=== PATIENT | male | born 1990 | race Caucasian/White ===

== ENCOUNTER 2023-08-21 22:54 | Emergency (ER) | payer SELFPAY ==
--- NOTE | 2023-08-21 | ECG_ITS ---
Test Reason : OVERDOSE Blood Pressure : / mmHG Vent. Rate : 079 BPM Atrial Rate : 079 BPM P-R Int : 160 ms QRS Dur : 098 ms QT Int : 380 ms P-R-T Axes : 062 031 032 degrees QTc Int : 435 ms Normal sinus rhythm Normal ECG No previous ECGs available Referred By: Kati Sears Electronically Signed By:JACKIE ABARCA
[2023-08-21 23:06] VITALS: BP 142/98; PULSE 112; O2SAT 95
[2023-08-21 23:11] VITALS: PULSE 80; RESP 12; O2SAT 95; BMI 21.5
--- NOTE | 2023-08-21 23:21 | ED.OVERDOSE ---
HPI - Overdose General Chief Complaint: Overdose Stated Complaint: OD on 20-30 pills of lorazepam, smells of alc. Time Seen by Provider: 08/21/23 23:11 Source: EMS Mode of arrival: EMS Limitations: altered mental status History of Present Illness HPI Narrative: Patient comes to the emergency room via EMS. Patient coming from home. Patient was found unresponsive by his family 15 minutes prior to EMS arrival. According to a family member , reported to EMS that the patient was found beside a bottle of Ativan. The Ativan belongs to a family member of the house, who believes that there are 20-30 tablets of Ativan missing. Also, patient has a strong odor of alcohol. According to the family, the patient has no psychiatric history, there was no indication that the patient would attempt to overdose. On arrival patient's vital stable, patient only responsive to sternal rub and falls back asleep. Related Data Allergies Allergy/AdvReac Type Severity Reaction Status Date / Time No Known Allergies Allergy Verified 08/21/23 23:20 Review of Systems Review of Systems: Yes Unobtainable due to mental condition PMFSH Social History Social History Advance Directives: No Advance Directives Information Provided: Yes Physical Exam Vital Signs: Vital Signs: Last Vital Signs Pulse 80 08/21/23 23:11 Resp 12 08/21/23 23:11 Pulse Ox 95 08/21/23 23:11 O2 Del Method Room Air 08/21/23 23:11 BMI result Body Mass Index 21.5 Const: Other: Appearance: Somnolent, arousable to sternal rub, wakes up and falls back asleep Eyes: Pupils have sluggish response to light. However, patient has colored contact lenses ENT: Pharynx normal. Neck: Normal inspection. Neck supple. No lymph nodes noted. No crepitus CVS: Normal heart rate and rhythm. Pulses normal. Normal S1 and S2 Respiratory: No respiratory distress. Breath sounds normal. No Wheezing. No rales Abdomen: Soft and nontender. No rigidity. No distention. Skin: Skin warm and dry. There are several superficial skin scratching in bilateral upper thighs Extremities: No lower extremity edema. No Lacerations. No Rash Neuro: Somnolent, arousable to sternal rub Psych: Too somnolent to evaluate Course Course Course Narrative: Patient's labs and EKG pending -vitals are stable -patient on a Section 12, patient on a one-to-one observation -patient's nurse on the phone with poison Control Medical Decision Making Medical Decision Making [facility] Narrative: -my interpretation of the EKG: Normal sinus rhythm, heart rate 79, no ST segment depression or elevation, no T-wave inversion, QTC 435 -my interpretation of labs, hematology, normal chemistry, ETOH positive, negative for aspirin or acetaminophen. Urine toxicology pending. -patient's family is at bedside. The mother reports that she takes Ativan and she was missing between 20-30 pills. However, after the patient was brought to the emergency room, she found some of the pills in patient's bed. It is unclear how many he took. -according to the family, patient has no history of anxiety or depression or suicidal attempts, no psychiatric history. I discussed with them that on physical exam he has superficial cuts in both upper thighs, likely indicating anxiety/depression. Discussed with them that patient is on a Section 12, waiting to be seen by Psychiatry and disposition pending. Both patient's mom and sister agree with the plan. Patient is still too somnolent to participate in history/decision making. Differential Diagnosis Differential Diagnoses: The differential diagnosis associated with the presentation includes (Alcohol intoxication, benzodiazepine overdose, anxiety, depression, suicide attempt) Admission/Observation Consideration of admission/observation: Escalation of care including admission/observation considered (Patient is on a Section 12, disposition pending by the care team) Lab Data [facility] Lab Attestation statement: I reviewed the patient's lab results. 08/21/23 23:37 08/21/23 23:37 Labs: Lab Results 08/21/23 Range/Units 23:37 WBC 6.8 (4.8-10.8) X10*3/uL RBC 4.87 (4.60-5.80) X10*6/uL Hgb 15.3 (14.0-18.0) g/dl Hct 43.1 (42.0-52.0) % MCV 88.5 (80.0-98.0) fL MCH 31.4 (27.0-33.0) pg MCHC 35.5 (31.0-36.0) g/dl RDW 11.2 (11.0-16.0) % Plt Count 305 (160-400) X10*3/uL MPV 8.4 L (9.4-12.4) fL Immature Gran % (Auto) 0.3 (0.0-0.4) % Neut % (Auto) 56.3 (45-73) % Lymph % (Auto) 32.4 (20-40) % Woodward % (Auto) 6.4 (2-11) % Eos % (Auto) 4.0 (0-4) % Baso % (Auto) 0.6 (0-2) % Lymph # (Auto) 2.2 (1.2-4.9) X10*3/uL Woodward # (Auto) 0.4 (0.1-1.2) X10*3/uL Eos # (Auto) 0.3 (0.0-0.4) X10*3/uL Baso # (Auto) 0.0 (0.0-0.2) X10*3/uL Abs Immat Gran (auto) 0.02 (0.00-0.03) X10*3/uL Absolute Neuts (auto) 3.8 (2.0-8.3) x10*3/uL Absolute Nucleated RBC 0.000 (0.0-0.012) X10*3/uL Nucleated RBC % (auto) 0.0 (0.0-0.2) /100WBC PT 11.4 (11.1-13.3) SEC INR 0.9 (0.9-1.1) Sodium 143 (135-145) mmol/L Potassium 3.5 (3.3-5.1) mmol/L Chloride 106 (96-108) mmol/L Carbon Dioxide 26 (22-29) mmol/L Anion Gap 15 (12-20) BUN 9 (9-16) mg/dL Creatinine 0.73 (0.5-1.4) mg/dL Estim Creat Clear Calc 131.5 Estimated GFR > 60 Random Glucose 77 (60-115) mg/dL Calcium 8.9 (8.4-10.2) mg/dL Magnesium 2.3 (1.6-2.6) mg/dL Total Bilirubin 1.0 (0.0-1.0) mg/dL Direct Bilirubin 0.3 (0.0-0.5) mg/dL AST 17 (5-37) U/L ALT 12 (0-40) U/L Alkaline Phosphatase 80 (39-117) U/L Ammonia 29 (13-55) umol/L Troponin I High Sens < 2.7 (<3.5-35.0) ng/L Total Protein 7.7 (6.5-8.0) g/dL Albumin 4.5 (3.5-5.0) g/dL Salicylates < 5.0 L (15-30) mg/dL Acetaminophen < 3 (<30) mcg/mL Ethyl Alcohol 213 mg/dL Independent Interpretation I performed an independent interpretation of an: EKG Independent Historian Clinical information obtained from an independent historian. History obtained from or confirmed by: Parent (Mother), EMS and Other (Sister) Critical Care Time Critical Care Time Critical Care Time: Yes Total Critical Care Time: 60 Attestation: I have personally provided critical care time. Time includes review of lab data, radiology results, discussion with consultants, and monitoring for potential decompensation. Intervention performed as documented. Discharge Plan Discharge Clinical Impression: Drug overdose, Alcohol abuse Patient Disposition: Still a Patient
--- NOTE | 2023-08-21 23:26 | PC.NURSE ---
Pt unresponsive only responds to painful stimuli. Provider in with pt Vitals stable. This RN called poison control and spoke with Jonas. Per Jonas with ativan all we can do is supportive care. Plan of care ongoing.
[2023-08-21 23:45] LABS: Basophils Percent Auto 0.6 % (0-2); Eosinophils Absolute Auto 0.3 X10*3/uL (0.0-0.4); Hematocrit 43.1 % (42.0-52.0); Hemoglobin 15.3 g/dl (14.0-18.0); Imm Gran Abs Auto 0.02 X10*3/uL (0.00-0.03); Imm Gran Pct Auto 0.3 % (0.0-0.4); Lymphocytes Absolute Auto 2.2 X10*3/uL (1.2-4.9); Lymphocytes Percent Auto 32.4 % (20-40); MANUAL DIFF FLAG NO; Mean Corpuscular HGB Conc 35.5 g/dl (31.0-36.0); Mean Corpuscular Hemoglobin 31.4 pg (27.0-33.0); Mean Corpuscular Volume 88.5 fL (80.0-98.0); Mean Platelet Volume 8.4 fL (9.4-12.4); Monocytes Absolute Auto 0.4 X10*3/uL (0.1-1.2); Monocytes Percent Auto 6.4 % (2-11); Neutrophils Absolute Auto 3.8 x10*3/uL (2.0-8.3); Neutrophils Percent Auto 56.3 % (45-73); Platelet Count 305 X10*3/uL (160-400); Red Blood Count 4.87 X10*6/uL (4.60-5.80); Red Cell Distribution Width 11.2 % (11.0-16.0); White Blood Count 6.8 X10*3/uL (4.8-10.8)
[2023-08-21 23:50] LABS: INTERNATIONAL NORM RATIO 0.9 (0.9-1.1); Prothrombin Time 11.4 SEC (11.1-13.3)
[2023-08-21 23:52] LABS: Ammonia 29 umol/L (13-55)
[2023-08-21 23:59] LABS: Alanine Aminotransferase 12 U/L (0-40); Albumin Level 4.5 g/dL (3.5-5.0); Alkaline Phosphatase 80 U/L (39-117); Anion Gap 15 (12-20); Aspartate Amino Transferase 17 U/L (5-37); Bilirubin Direct 0.3 mg/dL (0.0-0.5); Blood Urea Nitrogen 9 mg/dL (9-16); Calcium 8.9 mg/dL (8.4-10.2); Carbon Dioxide 26 mmol/L (22-29); Chloride 106 mmol/L (96-108); Creatinine Clr Calc Pharmacy 131.5; Estimated Glomerular Filt Rate > 60; Ethanol 213 mg/dL; Glucose Random 77 mg/dL (60-115); Magnesium 2.3 mg/dL (1.6-2.6); Potassium 3.5 mmol/L (3.3-5.1); Sodium 143 mmol/L (135-145); Total Protein 7.7 g/dL (6.5-8.0)
[2023-08-22 00:05] LABS: Acetaminophen LAB < 3 mcg/mL (<30); Salicylate < 5.0 mg/dL (15-30)
[2023-08-22 00:08] LABS: Troponin-I High Sensitivity < 2.7 ng/L (<3.5-35.0)
--- NOTE | 2023-08-22 01:32 | PC.NURSE ---
This RN spoke with family at bedside regarding pts status. Plan of care ongoing.
[2023-08-22 02:00] VITALS: BP 108/75; PULSE 78; RESP 15; O2SAT 100
[2023-08-22 05:23] VITALS: BP 111/69; PULSE 100; RESP 16; O2SAT 99
[2023-08-22 05:30] LABS: Amphetamine Screen Urine Not Detected (Not Detect); Barbiturates, Urine Not Detected (Not Detect); Benzodiazepines Screen Urine Not Detected (Not Detect); Cannabinoid Screen Urine Not Detected (Not Detect); Cocaine Screen Urine Not Detected (Not Detect); Fentanyl, urine Not Detected (Not Detect); Opiate Screen Urine Not Detected (Not Detect); Phencyclidine Screen Urine Not Detected (Not Detect)
--- NOTE | 2023-08-22 05:46 | PC.NURSE ---
Pt awake. Pt denies taking any pills (ativan) Pt reports he only drank alcohol. Provider aware. Plan of care ongoing.
[2023-08-22 08:31] VITALS: BP 113/78; PULSE 91; RESP 16; TEMP 36.6; O2SAT 96
== END 2023-08-22 08:56 | disposition home or self-care (01) ==
PROVIDERS: Emergency Provider Emergency Medicine
DX: T42.4X2A Poisoning by benzodiazepines, intentional self-harm, initial encounter (principal); R45.851 Suicidal ideations; Y92.9 Unspecified place or not applicable; F33.1 Major depressive disorder, recurrent, moderate; F41.1 Generalized anxiety disorder; F43.0 Acute stress reaction; F10.129 Alcohol abuse with intoxication, unspecified; Z79.899 Other long term (current) drug therapy; Y90.7 Blood alcohol level of 200-239 mg/100 ml
CPT/HCPCS: 36415; 51701; 80048; 80076; 80143; 80179; 80307; 82140; 83735; 84484; 85025; 85610; 93005; 99285; S9485

== ENCOUNTER → 2023-08-21 23:24 | Outpatient (BNV) | payer SELFPAY | PROVIDERS: Emergency Provider Emergency Medicine; Visit Provider Internal Medicine | DX: T50.901A Poisoning by unspecified drugs, medicaments and biological substances, accidental (unintentional), initial encounter (principal) | CPT/HCPCS: 93010 ==

== ENCOUNTER 2023-09-15 11:52 | Outpatient (REF) | payer OTHER, SELFPAY ==
[2023-09-15 12:31] LABS: MANUAL DIFF FLAG NO
[2023-09-15 14:01] LABS: Basophils Percent Auto 0.6 % (0-2); Eosinophils Absolute Auto 0.1 X10*3/uL (0.0-0.4); Eosinophils Percent Auto 1.9 % (0-4); Hematocrit 48.3 % (42.0-52.0); Hemoglobin 16.3 g/dl (14.0-18.0); Imm Gran Abs Auto 0.01 X10*3/uL (0.00-0.03); Imm Gran Pct Auto 0.2 % (0.0-0.4); Lymphocytes Absolute Auto 1.3 X10*3/uL (1.2-4.9); Lymphocytes Percent Auto 20.3 % (20-40); Mean Corpuscular HGB Conc 33.7 g/dl (31.0-36.0); Mean Corpuscular Volume 91.8 fL (80.0-98.0); Mean Platelet Volume 9.6 fL (9.4-12.4); Monocytes Absolute Auto 0.5 X10*3/uL (0.1-1.2); Monocytes Percent Auto 7.4 % (2-11); Neutrophils Absolute Auto 4.5 x10*3/uL (2.0-8.3); Neutrophils Percent Auto 69.6 % (45-73); Platelet Count 338 X10*3/uL (160-400); Red Blood Count 5.26 X10*6/uL (4.60-5.80); Red Cell Distribution Width 11.3 % (11.0-16.0); White Blood Count 6.5 X10*3/uL (4.8-10.8)
[2023-09-15 14:45] LABS: Alanine Aminotransferase 15 U/L (0-40); Albumin Level 4.6 g/dL (3.5-5.0); Alkaline Phosphatase 81 U/L (39-117); Anion Gap 12 (12-20); Aspartate Amino Transferase 19 U/L (5-37); Bilirubin Direct 0.5 mg/dL (0.0-0.5); Bilirubin Total 2.1 mg/dL (0.0-1.0); Blood Urea Nitrogen 10 mg/dL (9-16); Calcium 9.9 mg/dL (8.4-10.2); Carbon Dioxide 29 mmol/L (22-29); Chloride 100 mmol/L (96-108); Estimated Glomerular Filt Rate > 60; Glucose Random 82 mg/dL (60-115); Potassium 4.3 mmol/L (3.3-5.1); Sodium 137 mmol/L (135-145)
[2023-09-16 09:03] LABS: HBS Num1 25.08 mIU/mL (0-7.99); HBc Num1 0.04 S/CO (0.00-0.79); HBsAGNum1 0.29 S/CO (0.00-0.99); Hepatitis B Core Antibody Nonreactive (Nonreactive); Hepatitis B Surface Antigen Negative (Negative); ~HepC Num1 0.19 S/CO (0.00-0.79); ~Hepatitis B Surface Antibody REACTIVE (Nonreactive); ~Hepatitis C Antibody Nonreactive (Nonreactive)
[2023-09-18 08:53] LABS: TS Negative Control Passed; TS Panel A 0; TS Panel B 0; TS Positive Control Passed; TSpotTB Negative (Negative)
== END 2023-09-15 11:53 | disposition home or self-care (01) ==
LOC: HO.LAB 11:52
PROVIDERS: Visit Provider Physician Assistant Medical
DX: Z11.1 Encounter for screening for respiratory tuberculosis (principal); L40.0 Psoriasis vulgaris; L60.3 Nail dystrophy; L98.8 Other specified disorders of the skin and subcutaneous tissue; Z79.899 Other long term (current) drug therapy
CPT/HCPCS: 36415; 80048; 80076; 85025; 86481; 86704; 86706; 86803; 87340

== ENCOUNTER 2024-12-07 10:48 | Outpatient (REF) | payer OTHER, SELFPAY ==
--- NOTE | ~2024-12-07 | XR_ITS ---
CLINICAL HISTORY: CERVICAL AND THORACIC PAIN PAIN 3 views thoracic spine Comparison: None Findings: Normal vertebral body alignment. No acute fractures or dislocation. No significant degenerative change. IMPRESSION: No acute findings. This document has been electronically signed by: Cristopher Pimentel MD on 12/09/2024 08:33:58
--- NOTE | ~2024-12-07 | XR_ITS ---
CLINICAL HISTORY: PAIN --- Additional Notes or Special Instructions: WO 6 views cervical spine Comparison: None Findings: Normal vertebral body alignment. No acute fractures or dislocation. There are degenerative disc changes at C5-C6 and C6-C7. Prevertebral soft tissues within normal limits. Neural foramina are patent. IMPRESSION: No acute findings. This document has been electronically signed by: Cristopher Pimentel MD on 12/09/2024 08:33:42
[2024-12-07 11:01] LABS: MANUAL DIFF FLAG NO
[2024-12-07 11:38] LABS: Basophils Percent Auto 0.7 % (0-2); Eosinophils Absolute Auto 0.1 X10*3/uL (0.0-0.4); Eosinophils Percent Auto 1.2 % (0-4); Hematocrit 43.2 % (42.0-52.0); Hemoglobin 15.2 g/dl (14.0-18.0); Imm Gran Abs Auto 0.02 X10*3/uL (0.00-0.03); Imm Gran Pct Auto 0.3 % (0.0-0.4); Lymphocytes Absolute Auto 1.3 X10*3/uL (1.2-4.9); Lymphocytes Percent Auto 22.3 % (20-40); Mean Corpuscular HGB Conc 35.2 g/dl (31.0-36.0); Mean Corpuscular Hemoglobin 32.5 pg (27.0-33.0); Mean Corpuscular Volume 92.5 fL (80.0-98.0); Mean Platelet Volume 9.1 fL (9.4-12.4); Monocytes Absolute Auto 0.5 X10*3/uL (0.1-1.2); Monocytes Percent Auto 8.2 % (2-11); Neutrophils Percent Auto 67.3 % (45-73); Platelet Count 322 X10*3/uL (160-400); Red Blood Count 4.67 X10*6/uL (4.60-5.80); Red Cell Distribution Width 11.7 % (11.0-16.0)
[2024-12-07 12:38] LABS: Alanine Aminotransferase 42 U/L (0-40); Albumin Level 4.5 g/dL (3.5-5.0); Alkaline Phosphatase 57 U/L (39-117); Anion Gap 13 (12-20); Aspartate Amino Transferase 35 U/L (5-37); Bilirubin Total 1.6 mg/dL (0.0-1.0); Blood Urea Nitrogen 8 mg/dL (9-16); Calcium 9.6 mg/dL (8.4-10.2); Carbon Dioxide 27 mmol/L (22-29); Chloride 104 mmol/L (96-108); Cholesterol 213 mg/dL (<200); Estimated Glomerular Filt Rate > 60; Glucose Fasting 91 mg/dL (60-99); HDL Cholesterol 83 mg/dL (>40); LDL Cholesterol Calculated 117 mg/dL (<100); Potassium 4.1 mmol/L (3.3-5.1); Sodium 140 mmol/L (135-145); Total Protein 7.2 g/dL (6.5-8.0); Triglycerides 69 mg/dL (<150)
== END 2024-12-07 10:49 | disposition home or self-care (01) ==
LOC: HO.LAB 10:48
PROVIDERS: PCP Internal Medicine; Visit Provider Internal Medicine
DX: Z00.00 Encounter for general adult medical examination without abnormal findings (principal); E78.5 Hyperlipidemia, unspecified; M54.2 Cervicalgia; M54.6 Pain in thoracic spine
CPT/HCPCS: 36415; 72050; 72070; 80053; 80061; 85025

== ENCOUNTER → 2024-12-07 11:20 | Outpatient (BNV) | payer OTHER, SELFPAY | PROVIDERS: PCP Internal Medicine; Visit Provider Specialist | DX: M54.2 Cervicalgia (principal); M54.6 Pain in thoracic spine | CPT/HCPCS: 72050; 72070 ==

== ENCOUNTER 2025-02-22 08:48 | Outpatient (AMB) | payer OTHER, SELFPAY ==
--- NOTE | 2025-02-22 09:05 | A.OFFPC_ITS ---
Vital Signs 02/22/25 09:20 Height 5 ft 5.75 in Weight 143 lb BMI 23.3 BP 132/59 L Respiration 14 Pulse 70 Pulse Source Pulse Oximeter Temp 98.1 F Temp Source Temporal Artery Scan Pulse Oximetry (%) 99 Oxygen Delivery Method Room Air Intake Visit Reasons: Establish Care - see comments Wrap Yarn Sorter Required: No Accompanied by: Self / Same As Patient Allergies No Known Allergies Allergy (Verified 02/22/25 09:43) Medication List - Last Reconciled 02/22/25 by Leann Dudley PA-C zyajovsijx-krvjggnihggys-mcez 50-325-40 mg 1 tab PO DAILY PRN methylphenidate HCl 10 mg PO DAILY risankizumab-rzaa (Skyrizi) 150 mg subcut Q12W Tobacco use date assessed: 02/22/25 Dental Screening Dental Screen Date: 02/22/25 Did you have a dental visit in the last 12 months?: No Did you have a dental problem in the last 6 months where you did not have access to dental care?: No HPI Establish Care - see comments HPI Details The patient is a 34-year-old male presenting for a new primary care provider and management of ADHD. The patient has been on medication for ADHD, which was started two months ago as a trial run, and he is considering a dosage increase as he feels a higher dose may be more effective. He reports no adverse side effects from the current medication. The patient has a history of elevated liver enzymes, which have been monitored s sanjuana August 2023. The liver enzyme levels have shown a decreasing trend, and the patient denies any symptoms such as abdominal pain or jaundice. The patient has hypercholesterolemia, with a total cholesterol level of 213 mg/dL and LDL of 117 mg/dL. His HDL is 83 mg/dL, and triglycerides are within normal limits. The patient has a low blood pressure reading of 132/59 mmHg, with the diastolic value being slightly low. Preventative care measures discussed include blood work for TSH, PSA, vitamin D, vitamin B12, folate, and hemoglobin A1c, which have not been performed recently. Social History - Alcohol use: Denies significant alcoho l consumption [facility] Medical History (Updated 02/22/25 @ 10:20 by Leann Dudley PA-C) Elevated liver enzymes Preventative health care Hyperlipidemia Pure hypercholesterolemia, unspecified Migraine headache Psoriasis ADHD Establishing care with new doctor, encounter for Family History Mother BP (high blood pressure) Diabetes Arthritis Father BP (high blood pressure) Diabetes Social History Housing: Apartment Alcohol intake: current Alcohol intake frequency: holidays/special occasions only Patient Tobacco Use Status: Current someday Tobacco user service: No Current occupational status: employed Cognitive needs: No Hearing needs: No Vision needs: Yes (rx contacts/glasses) Questionnaire PHQ-9 Over the last 2 weeks, how often have you been bothered by any of the following problems? 1. Little interest or pleasure in doing things: not at all 2. Feeling down, depressed, or hopeless: not at all 3. Trouble falling or staying asleep, or sleeping too much: not at all 4. Feeling tired or having little energy: not at all 5. Poor appetite or overeating: not at all 6. Feeling bad about yourself - or that you are a failure or have let yourself o r your family down: not at all 7. Trouble concentrating on things, such as reading the newspaper or watching television: not at all 8. Moving or speaking so slowly that other people could have noticed. Or the opposite - being so fidgety or restless that you have been moving around a lot more than usual: not at all 9. Thoughts that you would be better off or of hurting yourself in some way: not at all Total score: 0 Depression Screening Interpretation: Negative Depression Screening Done: Yes 76508 - PHQ-9 Billing: Yes Source: Developed by Drs. Nas Eduardo, Rekha Orlando, Man grewal nd colleagues, with an educational drew from [employer]. Thrive Questionnaire Date Thrive assessed: 02/22/25 I am a: Patient What is your living situation today?: I have a steady place to live Within the past 12 months, did the food you bought not last and you didn't have the money to get more?: Never true Within the past 12 months, did you worry whether your food would run out before you got money to buy more?: Never true Do you have trouble paying for medicines?: No Do you have trouble getting transportation to medical appointments?: No Do you have trouble paying your heating and electricity bill?: No Do you have trouble taking care of your child, family member or friend?: No Do you have trouble with day-to-day activities such as bathing, preparing meals, shopping, managing finances, etc.?: No Are you currently unemployed and looking for a job?: No Are you interested in more education?: No Please select the resources that you would like help with: None THRIVE Score: 0 AUDIT C Alcohol Use Questionnaire (AUDIT-C) 1. How often do you have a drink containing alcohol?: Monthly or less 2. How many drinks containing alcohol do you have on a typical day when you are drinking?: 1 or 2 3. How often do you have six or more drinks on one occasion?: Never Total Score: 1 Score Reviewed/Action Taken: No BEN-7 AMB Questionnaire BEN-7 Date BEN - 7 assessed: 02/22/25 Feeling nervous, anxious, or on edge: 0 = Not at all Not being able to stop or control worryin = Not at all Worrying too much about different things: 0 = Not at all Trouble relaxin = Not at all Being so restless that it is hard to sit still: 0 = Not at all Becoming easily annoyed or irritable: 0 = Not at all Feeling afraid as if something awful might happen: 0 = Not at all Total BEN-7 score (0-4 normal; 5-9 mild; 10-14 moderate; 15-21 severe): 0 Source: Developed by Drs. Nas Eduardo, Rekha Orlando, Man Leyva and colleagues, with an educational drew from [employer]. BEN-7 Assessment Billing BEN-7 Assessment Tool: BEN-7 Assessment 92647 Review of Systems Const Details: - Neurological: Denies adverse side effects from ADHD medication - Gastrointestinal: Denies abdominal pain, jaundice, nausea, or vomiting - Cardiovascular: Denies chest pain, shortness of breath, or palpitations Physical exam (Primary Care) Vital Signs: Last Vital Signs Temp 98.1 F 02/22/25 09:20 Pulse 70 02/22/25 09:20 Resp 14 02/22/25 09:20 BP 132/59 L 02/22/25 09:20 Pulse Ox 99 02/22/25 09:20 Oxygen Delivery Method Room Air 02/22/25 09:20 Care Plan Goal for BP management: <140/90 at Goal BMI result Body Mass Index 23.3 normal bmi Tobacco/Smoking Status: Tobacco use Status Tobacco use date assessed 02/22/25 02/22/25 09:09 Patient Tobacco Use Status Current someday Tobacco 02/22/25 09:25 PHQ-9: PHQ-9 Score PHQ-9: Total score 0 02/22/25 09:25 Depression Screening Interpretation: Negative Thrive Assessment: Date of Thrive Assessment Date Thrive assessed 02/22/25 02/22/25 09:09 Const Other: Appearance: Alert. Oriented X3. No acute distress. Head: Normal external exam. Normocephalic. Atraumatic. Eyes: Pupils are equal, round, and reactive to light. Extraocular movements intact. Conjunctiva and sclera normal. Eyelids normal. Ears: External auditory canal normal. Tympanic membranes normal. Throat: Pharynx normal. Uvula midline. Moist mucous membranes. Neck: Normal inspection. Neck supple. Full range of motion. Cardiovascular: Normal heart rate and rhythm. Heart sound normal. No murmurs noted. Pulses normal throughout. Blood pressure was 132/59, with the second number a little bit low. Respiratory: No respiratory distress. Painless inspiration. Breath sounds normal. No wheezes/rales/rhonchi noted. Chest nontender. No accessory muscle usage noted or decreased air movement noted. Abdomen: Soft and nontender. Back: Full range of motion noted. Skin: Skin warm and dry. Normal skin color. Normal skin turgor. No rashes/l esions/lacerations noted. Extremities: No lower extremity edema. Extremities exhibit normal range of motion. Extremities nontender. Neuro: Oriented X 3. No motor deficit. No sensory deficit. Reflexes normal. Results Reviewed Results Reviewed: - Labs: CBC normal, no anemia, normal platelets, normal kidney function, elevated liver enzymes since August 2023, cholesterol 213 mg/dL, LDL 117 mg/dL, HDL 83 mg/dL, triglycerides normal Coding Level of Care Code New Pt Level 4 (40357) Complex EM visit Add On G2211 Diagnoses Establishing care with new doctor, encounter for Z76.89 ADHD F90.9 Psoriasis L40.9 Migraine headache G43.909 Pure hypercholesterolemia, unspecified E78.00 Hyperlipidemia E78.5 Preventative health care Z00.00 Elevated liver enzymes R74.8 Additional Codes PHQ-9 - 24804 - PHQ-9 Billing: Yes ([id number]) BEN-7 Assessment Billing - BEN-7 Assessment Tool: BEN-7 Assessment 73390 ([id number]) Assessment & Plan Assessment & Plan (1) Establishing care with new doctor, encounter for: Code(s): Z76.89 - Persons encountering health services in other specified circumstances Category: Medical (2) ADHD: Comment: On Methylphenidate 10 mg Code(s): F90.9 - Attention-deficit hyperactivity disorder, unspecified type Category: Medical Plan: The patient is currently on medication for ADHD, which was initiated two months ago as a trial. He is considering a dosage increase as he feels a higher dose may be more effective, and this will be discussed with Dr. Staples for further management. Dr. Hector recommended referring the patient to [facility] for further evaluation. Until then we will give the patient the same dose he was receiving with Dr. Magana 10 mg for 30 days and he will return in 30 days. Condition is chronic and stable will continue to monitor. (3) Psoriasis: Code(s): L40.9 - Psoriasis, unspecified Category: Medical Plan: Patient to continue Skyrizi subcu injections every 12 weeks. Condition is chronic and stable continue to monitor. (4) Migraine headache: Code(s): G43.909 - Migraine, unspecified, not intractable, without status migrainosus Category: Medical Plan: Patient to continue sumatriptan as needed. Condition is chronic and stable continue to monitor. (5) Pure hypercholesterolemia, unspecified: Code(s): E78.00 - Pure hypercholesterolemia, unspecified Category: Medical Plan: Patient to improve diet and exercise regimen. Condition is chronic and stable will continue to monitor. (6) Hyperlipidemia: Code(s): E78.5 - Hyperlipidemia, unspecified Category: Medical Plan: Patient to improve diet and exercise regimen. Condition is chronic and stable will continue to monitor. (7) Preventative health care: Code(s): Z00.00 - Encounter for general adult medical examination without abnormal findings Category: Medical Plan: Preventative care measures include blood work for TSH, PSA, vitamin D, vitamin B12, folate, and hemoglobin A1c. These tests are not urgent but should be completed to ensure no deficiencies. (8) Elevated liver enzymes: Code(s): R74.8 - Abnormal levels of other serum enzymes Category: Medical Plan: The patient's liver enzymes have been elevated since August 2023, but they are showing a decreasing trend. Regular monitoring every six months is recommended, and the patient is advised to report any symptoms such as jaundice or abdominal pain. Plan Plan Patient was informed and verbally consented to the use of an ambient scribe for clinic note documentation during this visit. 1. Attention Deficit Hyperactivity Disorder (Adhd) The patient is currently on medication for ADHD, which was initiated two months ago as a trial. He is considering a dosage increase as he feels a higher dose may be more effective, and this will be discussed with Dr. Staples for further management. Dr. Hector recommended referring the patient to [facility] for further evaluation. Until then we will give the patient the same dose he was receiving with Dr. Magana 10 mg for 30 days and he will return in 30 days. 2. Elevated Liver Enzymes The patient's liver enzymes have been elevated since August 2023, but they are showing a decreasing trend. Regular monitoring every six months is recommended, and the patient is advised to report any symptoms such as jaundice or abdominal pain. 3. Hypercholesterolemia The patient has elevated cholesterol levels, with a total cholesterol of 213 mg/dL and LDL of 117 mg/dL. Lifestyle modifications to reduce cholesterol intake are recommended, and regular monitoring will be continued. 4. Low Blood Pressure The patient has a low diastolic blood pressure reading of 132/59 mmHg, which will be monitored. No immediate intervention is required as the patient is otherwise healthy. 5. Preventative Care Preventative care measures include blood work for TSH, PSA, vitamin D, vitamin B12, folate, and hemoglobin A1c. These tests are not urgent but should be completed to ensure no deficiencies. I discussed with the patient the management of ADHD, including the possibility of increasing the medication dosage after consulting with Dr. Staples. We reviewed the patient's liver enzyme levels, which are decreasing, and emphasized the importance of monitoring and reporting any symptoms. The patient was advised on lifestyle modifications to manage hypercholesterolemia and the need for regular monitoring. Preventative care measures were outlined, including necessary blood tests to be completed at the patient's convenience. Orders: Orders Vitamin D 25-OH Total Today Z00.00 - Encounter for general adult medical examination without abnormal findings Vitamin B12 and Folate Today Z00.00 - Encounter for general adult medical examination without abnormal findings TSH reflex Free T4 Today Z00.00 - Encounter for general adult medical examination without abnormal findings Hemoglobin A1c Today Z00.00 - Encounter for general adult medical examination without abnormal findings Magnesium Today Z00.00 - Encounter for general adult medical examination without abnormal findings PSA,Total (Free>4and<10) Today Z00.00 - Encounter for general adult medical examination without abnormal findings Referrals Psychiatry Outpatient Consultation Service F90.9 - Attention-deficit hyperactivity disorder, unspecified type, Z76.89 - Persons encountering health services in other specified circumstances Medications: New risankizumab-rzaa (Skyrizi) 150 mg subcut Q12W 1 mL 3RF methylphenidate HCl Partial Fill upon patient request. 10 mg PO QAM 30 tabs 0RF Patient Instructions: - Continue current ADHD medication and await further instructions regarding dosage adjustment. - Monitor for any symptoms such as jaundice or abdominal pain and report immediately. - Implement lifestyle changes to reduce cholesterol intake. - Complete blood work for TSH, PSA, vitamin D, vitamin B12, folate, and hemoglobin A1c at your convenience. - Schedule a follow-up appointment in six months unless advised otherwise.
[2025-02-22 09:20] VITALS: BP 132/59; PULSE 70; RESP 14; TEMP 36.7; O2SAT 99; BMI 23.3
== END 2025-02-22 09:42 | disposition home or self-care (01) ==
LOC: HO.HMCSH 08:48
PROVIDERS: PCP Internal Medicine; Visit Provider Physician Assistant Medical
DX: Z76.89 Persons encountering health services in other specified circumstances (principal); F90.9 Attention-deficit hyperactivity disorder, unspecified type; L40.9 Psoriasis, unspecified; G43.909 Migraine, unspecified, not intractable, without status migrainosus; E78.00 Pure hypercholesterolemia, unspecified; E78.5 Hyperlipidemia, unspecified; Z00.00 Encounter for general adult medical examination without abnormal findings; R74.8 Abnormal levels of other serum enzymes

== ENCOUNTER → 2025-02-22 08:48 | Outpatient (BNVA) | payer OTHER, SELFPAY | PROVIDERS: PCP Internal Medicine; Visit Provider Physician Assistant Medical | DX: Z00.00 Encounter for general adult medical examination without abnormal findings (principal); F90.9 Attention-deficit hyperactivity disorder, unspecified type; E78.00 Pure hypercholesterolemia, unspecified; L40.9 Psoriasis, unspecified; G43.909 Migraine, unspecified, not intractable, without status migrainosus; E78.5 Hyperlipidemia, unspecified; R74.8 Abnormal levels of other serum enzymes; R03.1 Nonspecific low blood-pressure reading; Z76.89 Persons encountering health services in other specified circumstances | CPT/HCPCS: 96127 ==

== ENCOUNTER 2025-03-06 15:14 | Outpatient (AMB) | payer OTHER, SELFPAY ==
--- NOTE | 2025-03-06 16:13 | MHC.OFFVISPS ---
Intake Intake Visit Reasons: consultation Supervisor Required: No Allergies No Known Allergies Allergy (Verified 02/22/25 09:43) Medication List - Last Reconciled 03/06/25 by Johanna Keith APRN [id number]-[id number]-[id number] 50-325-40 mg 1 tab PO DAILY PRN methylphenidate HCl 10 mg PO DAILY methylphenidate HCl 10 mg PO QAM risankizumab-rzaa (Skyrizi) 150 mg subcut Q12W HPI- Psychiatric Chief Complaint: consultation HPI Narrative: Patient referred by his primary care physician for evaluation of ADHD and medication optimization. Patient's PHQ-9 equals 6 is BEN-r 7 equals 3. He reports that his previous primary care doctor started him on methylphenidate 10 mg in November 2024 due to difficulties at work with concentration focus and forgetfulness. Patient states that the methylphenidate 10 mg was extremely helpful for approximately 2 weeks he felt more able to be on task he states that his thinking was more organized he was less forgetful. After about 2 weeks he states the medication got less effective and would only help him for 2 or 3 hours. He denies any side effects from the medication. Patient reports that he did well in school as a child he was constantly told that he talks too much he was easily distracted at school and was very chatty however he was able to get good grades he went to a small [employer] school he was placed in the [employer] program. He rebelled at times in school however he was able to graduate a year early from high school. He went on to college and studied [employer] management. Reports that his mother was always correcting him because he was very hyperactive he would touch everything while they were shopping he is very impulsive as a child he was never diagnosed with ADHD but he himself and other people have mentioned his distractibility and hyperactivity. He was well liked by teachers and students. 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 He completed the adult ADHD self report scale today and scored 6 out of 6 on the core symptoms of ADHD and 9 out of 12 of the sternal ADHD symptoms on the scale. Patient denies tobacco use he reports no THC use no illicit drug use. He has an episode of alcohol abuse and overdose on Ativan (his mother's) in 2022 after a breakup of a toxic. He reports this was a 1 time event and he has not used alcohol excessively since then he uses alcohol 6-10 times a year and small amounts. He denies any thoughts of harming himself he denies SI HI Past Psychiatric History: One appetite out of alcohol and Ativan overdose 2022 after breakup of toxic relationship seen in the, no IP LOC. Mental Status Exam Mental Status Exam Patient Appearance: Well Grooomed and Appropriate Patient Orientation: Person, Place, Time and Situation Level of Consciousness: Awake, Appropriate and Alert Patient Behavior: Appropriate, Cooperative and Anxious Mood Description: Anxious Affect Description: Anxious Patient Cognition Impaired: No Ability to Follow Directions: Good Speech Pattern: Clear, Appropriate and Coherent Memory Description: Intact Hallucinations: None Delusions: Not Present Thought Process: Intact and Goal Oriented Thought Content: positive for Intact and positive for Goal Oriented Judgement: Good Assessment and Plan Assessment & Plan (1) ADHD (attention deficit hyperactivity disorder), combined type: Status: Acute Code(s): F90.2 - Attention-deficit hyperactivity disorder, combined type Plan trial of concerta 36mg qam stay hydrated Pt unsure if wants to have a follow up appt or f/u with PCP - he will message me in portal in 7-10 days to let me know how he did with concerta Medications: New methylphenidate HCl ER (Concerta) Partial Fill upon patient request. 36 mg PO QAM 30 tabs 0RF F90.9 - Attention-deficit hyperactivity disorder, unspecified type Discontinued methylphenidate HCl Partial Fill upon patient request. Discontinued Reason: Doctor's Order 10 mg PO QAM 30 tabs 0RF Counseling and coordination of Care Pt. Self Management counseling: Exercise, Maintenance-social rhythm, Mod caffeine/ETOH intake, Nutrition education and improvement, Sleep hygiene, Behavior activation, General coping skills and Problem solving Medication management counseling: Effectiveness, Side effects, Dosing range, Duration, Drug interaction and Adherence Diagnosis and Prognosis Counseling: Accuracy of diagnosis, Prognosis over time, Impact of diagnosis on life functions, Impact of family relationship, Problematic behaviors secondary to diagnosis and Adequacy of current interventions Details: I spent 70 minutes reviewing the record, seeing the patient and documenting in the medical record. Counseling provided to the patient/caregiver as outlined below. Addressed patient/caregiver concerns regarding current medication regime including effective adherence. Addressed patient/caregiver concerns regarding diagnosis and prognosis including accuracy of diagnosis, prognosis over time, impact of diagnosis. Addressed patient/caregiver concerns regarding impact of recent stressors. [facility] Medical History (Updated 03/07/25 @ 12:28 by Johanna Keith APRN) Elevated liver enzymes Preventative health care Hyperlipidemia Pure hypercholesterolemia, unspecified Migraine headache Psoriasis ADHD Establishing care with new doctor, encounter for Family History Mother BP (high blood pressure) Diabetes Arthritis Father BP (high blood pressure) Diabetes Social History Housing: Apartment Alcohol intake: current Alcohol intake frequency: holidays/special occasions only Patient Tobacco Use Status: Current someday Tobacco user service: No Current occupational status: employed Cognitive needs: No Hearing needs: No Vision needs: Yes (rx contacts/glasses) Social History: Patient is single he lives with his mother he works full-time as a 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
== END 2025-03-06 17:06 | disposition home or self-care (01) ==
LOC: HO.HOP 15:14
PROVIDERS: PCP Internal Medicine; Visit Provider Clinical Nurse Specialist Psychiatric/Mental Health
DX: F90.2 Attention-deficit hyperactivity disorder, combined type (principal)
CPT/HCPCS: 90792

== ENCOUNTER → 2025-03-06 15:14 | Outpatient (BNVA) | payer OTHER, SELFPAY | PROVIDERS: PCP Internal Medicine; Visit Provider Clinical Nurse Specialist Psychiatric/Mental Health | DX: F90.2 Attention-deficit hyperactivity disorder, combined type (principal) | CPT/HCPCS: 90792 ==

== ENCOUNTER 2025-06-22 08:52 | Outpatient (AMB) | payer OTHER, SELFPAY ==
--- NOTE | 2025-06-22 09:06 | A.OFFPC_ITS ---
Vital Signs 06/22/25 09:12 Height 5 ft 5.75 in Weight 149 lb BMI 24.2 BP 136/83 Blood Pressure Location Rt brachial Position Sitting Respiration 14 Pulse 80 Pulse Source Pulse Oximeter Temp 98.0 F Temp Source Temporal Artery Scan Pulse Oximetry (%) 99 Oxygen Delivery Method Room Air Intake Visit Reasons: Migraine follow up Autotransfusionist Required: No Accompanied by: Self / Same As Patient Allergies No Known Allergies Allergy (Verified 06/22/25 10:34) Medication List - Last Reconciled 06/22/25 by Leann Dudley PA-C ibuprofen 800 mg PO Q8H methylphenidate HCl ER (Concerta) 36 mg PO QAM risankizumab-rzaa (Skyrizi) 150 mg subcut Q12W sumatriptan succinate (Imitrex) take 1 tab at onset of headache; if no relief may repeat 1 tab after at least 2 hrs; max = 4 tabs/24 hr PO Tobacco use date assessed: 02/22/25 Dental Screening Dental Screen Date: 02/22/25 HPI Migraine follow up HPI Details The patient is a 34-year-old male presenting for a follow-up visit, primarily for more consistent headaches. He reports that for two to three weeks, the headaches occurred every day, two to three times a day, though they have been less severe this past week. The pain starts in the right eye and radiates upward, without associated blurry vision, weakness, or numbness. He has experienced similar episodes twice before, once three years ago and again a year after that. For treatment, he stopped taking Fioricet as it was no longer effective. He was prescribed ibuprofen 800 mg and sumatriptan, which have had variable efficacy; recently, sumatriptan alone was effective, whereas the combination was not on a different occasion. Review of labs from November revealed a normal CBC and electrolytes. His liver enzy mes have been persistently slightly elevated, and he denies alcohol use or abdominal pain. His total cholesterol was 213 mg/dL and LDL was 117 mg/dL. He was negative for hepatitis. 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 Social History - Alcohol: Denies significant alcohol co nsumption. - Caffeine: Reports drinking a lot less coffee recently. [facility] Medical History (Updated 06/22/25 @ 10:41 by Leann Dudley PA-C) Healthcare maintenance Pain, eye, right Frequent headaches Elevated liver enzymes Preventative health care Hyperlipidemia Pure hypercholesterolemia, unspecified Migraine headache Psoriasis ADHD Establishing care with new doctor, encounter for Family History Mother BP (high blood pressure) Diabetes Arthritis Father BP (high blood pressure) Diabetes Social History Housing: Apartment Alcohol intake: current Alcohol intake frequency: holidays/special occasions only Patient Tobacco Use Status: Current someday Tobacco user service: No Current occupational status: employed Cognitive needs: No Hearing needs: No Vision needs: Yes (rx contacts/glasses) Questionnaire PHQ-9 Over the last 2 weeks, how often have you been bothered by any of the following problems? 1. Little interest or pleasure in doing things: not at all 2. Feeling down, depressed, or hopeless: not at all 3. Trouble falling or staying asleep, or sleeping too much: not at all 4. Feeling tired or having little energy: not at all 5. Poor appetite or overeating: not at all 6. Feeling bad about yourself - or that you are a failure or have let yourself or your family down: not at all 7. Trouble concentrating on things, such as reading the newspaper or watching television: not at all 8. Moving or speaking so slowly that other people could have noticed. Or the opposite - being so fidgety or restless that you have been moving around a lot more than usual: not at all 9. Thoughts that you would be better off or of hurting yourself in some way: not at all Total score: 0 Depression Screening Interpretation: Negative Depression Screening Done: Yes 55055 - PHQ-9 Billing: Yes Source: Developed by Drs. Nas Eduardo, Rekha Orlando, Man Leyva and colleagues, with an educational drew from [employer]. Thrive Questionnaire Date Thrive assessed: 02/22/25 I am a: Patient What is your living situation today?: I have a steady place to live Within the past 12 months, did the food you bought not last and you didn't have the money to get more?: Never true Within the past 12 months, did you worry whether your food would run out before you got money to buy more?: Never true Do you have trouble paying for medicines?: No Do you have trouble getting transportation to medical appointments?: No Do you have trouble paying your heating and electricity bill?: No Do you have trouble taking care of your child, family member or friend?: No Do you have trouble with day-to-day activities such as bathing, preparing meals, shopping, managing finances, etc.?: No Are you currently unemployed and looking for a job?: No Are you interested in more education?: No Please select the resources that you would like help with: None THRIVE Score: 0 AUDIT C Alcohol Use Questionnaire (AUDIT-C) 1. How often do you have a drink containing alcohol?: Monthly or less 2. How many drinks containing alcohol do you have on a typical day when you are drinking?: 1 or 2 3. How often do you have six or more drinks on one occasion?: Never Total Score: 1 Score Reviewed/Action Taken: No BEN-7 AMB Questionnaire BEN-7 Date BNE - 7 assessed: 02/22/25 Feeling nervous, anxious, or on edge: 0 = Not at all Not being able to stop or control worryin = Not at all Worrying too much about different things: 0 = Not at all Trouble relaxin = Not at all Being so restless that it is hard to sit still: 0 = Not at all Becoming easily annoyed or irritable: 0 = Not at all Feeling afraid as if something awful might happen: 0 = Not at all Total BEN-7 score (0-4 normal; 5-9 mild; 10-14 moderate; 15-21 severe): 0 Source: Developed by Drs. Nas Eduardo, Rekha Orlando, Man Leyva and colleagues, with an educational drew from [employer]. BEN-7 Assessment Billing BEN-7 Assessment Tool: BEN-7 Assessment 91924 Review of Systems Const Details: - Neurological: Reports frequent, daily headaches for the past 2-3 weeks, starting in the right eye and radiating upward. Denies weakness or numbness. - Eyes: Reports right eye pain associated with headaches. Denies blurry vision. - Gastrointestinal: Denies abdominal pain. All systems reviewed & are unremarkable except as noted in HPI and below Physical exam (Primary Care) Vital Signs: Last Vital Signs Temp 98.0 F 06/22/25 09:12 Pulse 80 06/22/25 09:12 Resp 14 06/22/25 09:12 BP 136/83 06/22/25 09:12 Pulse Ox 99 06/22/25 09:12 Oxygen Delivery Method Room Air 06/22/25 09:12 Care Plan Goal for BP management: <140/90 at Goal BMI result Body Mass Index 24.2 Normal BMI Tobacco/Smoking Status: Tobacco use Status Tobacco use date assessed 02/22/25 06/22/25 09:14 Patient Tobacco Use Status Current someday Tobacco 06/22/25 09:14 PHQ-9: PHQ-9 Score PHQ-9: Total score 0 06/22/25 09:26 Depression Screening Interpretation: Negative Thrive Assessment: Date of Thrive Assessment Date Thrive assessed 02/22/25 06/22/25 09:14 Const Other: Appearance: Alert. Oriented X3. No acute distress. Head: Normal external exam. Normocephalic. Atraumatic. Eyes: Pupils are equal, round, and reactive to light. Extraocular movements intact. Conjunctiva and sclera normal. Eyelids normal. Noted two red spots in the eye, possibly related to blood vessels. Throat: Pharynx normal. Uvula midline. Moist mucous membranes. Neck: Normal inspection. Neck supple. Full range of motion. Cardiovascular: Normal heart rate and rhythm. Respiratory: No respiratory distress. Painless inspiration. Back: Full range of motion noted. Skin: Skin warm and dry. Normal skin color. Normal skin turgor. No rashes/lesions/lacerations noted. Extremities:Extremities exhibit normal range of motion. Neuro: Oriented X 3. No motor deficit. No sensory deficit. Reflexes normal. Normal steady gait. Normal tandem walk. Negative Romberg test. No nystagmus is noted. No weakness is noted. Results Reviewed Results Reviewed: - Labs from November: CBC was normal. A basic metabolic panel was normal, including potassium and sodium. - Liver Function Tests: Bilirubin and liver enzymes are persistently slightly el evated. - Lipid Panel: Total cholesterol was 213 mg/dL and LDL was 117 mg/dL. - Hepatitis Panel: Negative. Coding Level of Care Code Est Pt Level 4 (90105) Complex EM visit Add On G2211 Diagnoses Frequent headaches R51.9 Elevated liver enzymes R74.8 Pure hypercholesterolemia, unspecified E78.00 Healthcare maintenance Z00.00 Additional Codes BEN-7 Assessment Billing - BEN-7 Assessment Tool: BEN-7 Assessment 00832 ([id number]) PHQ-9 - 82405 - PHQ-9 Billing: Yes ([id number]) Time Spent (min) 50 Assessment & Plan Assessment & Plan (1) Frequent headaches: Code(s): R51.9 - Headache, unspecified Category: Medical Plan: The patient's presentation of frequent, unilateral headaches originating from the eye is suspicious for cluster headaches, especially given they are more common in men and can be associated with caffeine withdrawal. To rule out intracranial pathology, a CT scan of the head will be ordered, with the potential for a future MRI or MRA if symptoms persist. A referral will be placed to Neurology for further evaluation. Due to findings of two red spots in one eye on fundoscopic exam, a follow-up to Ophthalmology is also recommended to rule out an ocular etiology. Magnesium oxide 400 mg to be taken at bedtime, vitamin B2 to be taken daily, coenzyme Q10 to be taken daily in topiramate 25 mg to be taken at bedtime will be prescribed for headache prophylaxis. The patient is advised to keep a headache diary, documenting triggers and symptoms. He should go to the ER for severe, intractable headaches. Referral to neurology as well. (2) Elevated liver enzymes: Code(s): R74.8 - Abnormal levels of other serum enzymes Category: Medical Plan: The patient has a history of persistently elevated liver enzymes without a clear cause, as he denies significant alcohol use or abdominal pain. An ultrasound of the liver will be ordered to further investigate these findings. (3) Pure hypercholesterolemia, unspecified: Code(s): E78.00 - Pure hypercholesterolemia, unspecified Category: Medical Plan: Previous labs showed mild elevations in total cholesterol (213) and LDL (117). As the elevations are minor, no medication is being initiated at this time, and labs can be repeated in November. (4) Healthcare maintenance: Code(s): Z00.00 - Encounter for general adult medical examination without abnormal findings Category: Medical Plan: Routine health maintenance labs will be ordered, including a hemoglobin A1c, magnesium level, PSA, thyroid function tests, vitamin B12, and vitamin D. Plan Plan Patient was informed and verbally consented to the use of an ambient scribe for clinic note documentation during this visit. 1. Headaches, Suspected Cluster Headache The patient's presentation of frequent, unilateral headaches originating from the eye is suspicious for cluster headaches, especially given they are more common in men and can be associated with caffeine withdrawal. To rule out intra cranial pathology, a CT scan of the head will be ordered, with the potential for a future MRI or MRA if symptoms persist. A referral will be placed to Neurology for further evaluation. Due to findings of two red spots in one eye on fundoscopic exam, a referral to Ophthalmology is also recommended to rule out an ocular etiology. Magnesium and vitamin B2 will be prescribed for headache prophylaxis. The patient is advised to keep a headache diary, documenting triggers and symptoms. He should go to the ER for severe, intractable headaches. 2. Elevated Liver Enzymes The patient has a history of persistently elevated liver enzymes without a clear cause, as he denies significant alcohol use or abdominal pain. An ultrasound of the liver will be ordered to further investigate these findings. 3. Hypercholesterolemia Previous labs showed mild elevations in total cholesterol (213) and LDL (117). As the elevations are minor, no medication is being initiated at this time, and labs can be repeated in November. 4. Health Maintenance Routine health maintenance labs will be ordered, including a hemoglobin A1c, magnesium level, PSA, thyroid function tests, vitamin B12, and vitamin D. I discussed with the patient that his symptoms are highly suggestive of cluster headaches. I explained the plan to order a CT scan of his head to rule out any large masses and that an MRI or MRA might be necessary later. I informed him about the referral to a neurologist for specialized management. I strongly advised him to see an director patient financial services to evaluate the red spots found in his eye, as it could be related to his headaches. I instructed him on the importance of keeping a headache diary to identify triggers and patterns, which will be helpful for the neurologist. We discussed starting magnesium and B2 supplements, and I ordered a liver ultrasound for his elevated enzymes. Finally, I provided return precautions, advising him to go to the ER for a severe, uncontrolled headache, and offered the option of coming to the office for an injection as an alternative. Orders: Orders UA CC w/rflx Micro + Cult Today Z00.00 - Encounter for general adult medical examination without abnormal findings CT head/brain wo IV con Today H57.11 - Ocular pain, right eye, R51.9 - Headache, unspecified US abdomen complete Today R74.8 - Abnormal levels of other serum enzymes Referrals Neurology Referral G43.909 - Migraine, unspecified, not intractable, without status migrainosus, R51.9 - Headache, unspecified Medications: New coenzyme Q10 400 mg PO DAILY 90 caps 3RF R51.9 - Headache, unspecified topiramate 25 mg PO DAILY 90 tabs 3RF R51.9 - Headache, unspecified riboflavin (vitamin B2) 400 mg PO .morning 90 tabs 3RF R51.9 - Headache, unspecified magnesium oxide 400 mg PO BEDTIME 90 tabs 3RF R51.9 - Headache, unspecified Patient Instructions: - I have ordered lab work for you. Please get this done. - You will be called to schedule a CT scan of your head and an ultrasound of your liver. - Please make an appointment to see an eye doctor (director patient financial services) to have your eyes checked. - I am referring you to a electronic security specialist (neurologist); their office will call you to schedule an appointment. This may take a month or two. - Keep a headache diary. Write down what you were doing or eating before a headache, any other symptoms you have, how long it lasts, and what medicine you took for it. - I am prescribing magnesium and Vitamin B2 to help with the headaches. - If you have a very severe headache that does not go away after taking your medication, you should go to the Emergency Room. - You can also call my office if you have a severe headache, as I may be able to give you an injection here to help you avoid a trip to the ER.
[2025-06-22 09:12] VITALS: BP 136/83; PULSE 80; RESP 14; TEMP 36.7; O2SAT 99; BMI 24.2
== END 2025-06-22 10:09 | disposition home or self-care (01) ==
LOC: HO.HMCSH 08:52
PROVIDERS: PCP Internal Medicine; Visit Provider Physician Assistant Medical
DX: R51.9 Headache, unspecified (principal); R74.8 Abnormal levels of other serum enzymes; E78.00 Pure hypercholesterolemia, unspecified; Z00.00 Encounter for general adult medical examination without abnormal findings

== ENCOUNTER → 2025-06-22 08:52 | Outpatient (BNVA) | payer OTHER, SELFPAY | PROVIDERS: PCP Internal Medicine; Visit Provider Physician Assistant Medical | DX: Z00.00 Encounter for general adult medical examination without abnormal findings (principal); R51.9 Headache, unspecified; R74.8 Abnormal levels of other serum enzymes; E78.00 Pure hypercholesterolemia, unspecified; H57.11 Ocular pain, right eye; Z79.899 Other long term (current) drug therapy | CPT/HCPCS: 96127 ==

== ENCOUNTER 2025-08-12 07:16 | Outpatient (REF) | payer OTHER, SELFPAY ==
--- NOTE | ~2025-08-12 | CT_ITS ---
CLINICAL HISTORY: R51.9 - Headache, unspecified CT head without contrast Comparison: None Findings: No acute hemorrhage, acute major vascular distribution infarct, intracranial mass, midline shift or hydrocephalus. No extra-axial fluid collection. Visualized paranasal sinuses and mastoid air cells normal. Orbits unremarkable. No acute fracture. Superficial soft tissue is unremarkable. Impression: 1. No acute intracranial finding. This document has been electronically signed by: Ellie Hunter MD on 08/14/2025 16:29:59
== END 2025-08-12 07:17 | disposition home or self-care (01) ==
LOC: HO.CT 07:16
PROVIDERS: PCP Physician Assistant Medical; Visit Provider Physician Assistant Medical
DX: H57.11 Ocular pain, right eye (principal); R51.9 Headache, unspecified
CPT/HCPCS: 70450

== ENCOUNTER → 2025-08-12 07:17 | Outpatient (BNV) | payer OTHER, SELFPAY | PROVIDERS: PCP Physician Assistant Medical; Visit Provider Radiology Diagnostic Radiology | DX: R51.9 Headache, unspecified (principal) | CPT/HCPCS: 70450 ==